=== PATIENT | male | born 1970 | race Caucasian/White ===

== ENCOUNTER 2023-04-05 08:25 | Emergency (ER) | payer BC ==
[~2023-04-05] VITALS: Ht 177.8 cm; Wt 63.6 kg
--- NOTE | 2023-04-05 10:02 | NUR ---
PT REFUSED TO REMOVE SHOES AND PANTS FOR MRI/STATES HE IS AN [employer] AND KNOWS WHAT IS NEEDED. RN WILL NOTIFY MRI. PT DID AGREE TO REMOVE GLASSES.
[2023-04-05 10:10] LABS: HEMOGLOBIN 14.6 g/dl (14.0-17.9); LYMPHOCYTES # (AUTO) 1.6 X10'3 (1.1-4.8); MEAN PLATELET VOLUME 7.3 FL (7.4-10.4); MONOCYTES # (AUTO) 0.7 X10'3 (0-0.9)
--- NOTE | 2023-04-05 10:11 | NUR ---
RN FAXED MRI FORM TO MRI AND NOTIFIED THEM THAT PT REFUSES TO REMOVE SHOES AND SCRUB PANTS.
[2023-04-05 10:13] LABS: BASOPHILS # (AUTO) 0.3 X10'3 (0-0.2); EOSINOPHILS # (AUTO) 0.2 X10'3 (0-0.9); EOSINOPHILS % (AUTO) 1.6 % (0-6); HEMATOCRIT 43.1 % (42.0-52.0); LYMPHOCYTES % (AUTO) 15.4 % (21-51); MEAN CORPUSCULAR HEMOGLOBIN 32.2 PG (27.0-31.0); MEAN CORPUSCULAR VOLUME 94.7 FL (78-98); MONOCYTES % (AUTO) 6.7 % (2-12); NEUTROPHILS # (AUTO) 7.7 X10'3 (1.8-7.7); NEUTROPHILS % (AUTO) 73.6 % (42-75); RED BLOOD COUNT 4.55 X10'6 (4.70-6.10); RED CELL DISTRIBUTION WIDTH 15.1 % (11.5-14.5); WHITE BLOOD COUNT 10.5 X10'3 (4.5-11.0)
[2023-04-05 10:16] LABS: BASOPHILS % (AUTO) 1.5 % (0-1); PLATELET COUNT 681 X10'3 (140-440)
[2023-04-05 10:23] LABS: ALANINE AMINOTRANSFERASE 28 U/L (12-78); ALBUMIN/GLOBULIN RATIO 1.6 (1.1-1.5); ALKALINE PHOSPHATASE 49 IU/L (46-116); ANION GAP 7 (8-16); ASPARTATE AMINO TRANSFERASE 18 U/L (10-37); BILIRUBIN,TOTAL 0.3 MG/DL (0.1-1.0); BLOOD UREA NITROGEN 8 MG/DL (7-18); BUN/CREATININE RATIO 7.8 (10.0-20.0); CALCIUM 9.2 MG/DL (8.5-10.1); CHLORIDE 102 MMOL/L (99-107); CREATININE 1.02 MG/DL (0.60-1.10); GLUCOSE 101 MG/DL (70-104); POTASSIUM 4.4 MMOL/L (3.5-5.1); SODIUM 141 MMOL/L (135-145); TOTAL CARBON DIOXIDE 31.7 MMOL/L (24-32); TOTAL PROTEIN 6.5 G/DL (6.4-8.2); eGFR 76 ML/MIN
--- NOTE | 2023-04-05 10:32 | NUR ---
PT TAKEN TO MRI.
[2023-04-05 10:46] LABS: LARGE PLATELETS FEW; PLATELET ESTIMATE INCREASED
[2023-04-05 14:20] VITALS: BP 139/91
== END 2023-04-05 14:23 | disposition home or self-care (01) ==
LOC: ER 08:27
DX: M48.00 Spinal stenosis, site unspecified (principal)
CPT/HCPCS: 36415; 72141; 72146; 72148; 80053; 85008; 85025; 99285